=== PATIENT | female | born 1935 | race Two or more races ===

== ENCOUNTER 2017-11-24 20:27 | Emergency (ER) | payer OTHER ==
[~2017-11-24] VITALS: Ht 152.4 cm; Wt 62.6 kg
[~2017-11-24 20:27] MED LIST: CATAFLAM50 MG PO; DICLOFENAC SODI50 MG PO; GLUCOPHAGE XR500 MG; LIPITOR20 MG; LOSARTAN POTASS50 MG; ORPH100T PO; VERAPAMIL ER300 MG
[2017-11-24] MEDS ORDERED: FORTAMET500 MG (20:47)
== END 2017-11-24 22:32 | disposition home or self-care (01) ==
LOC: ER 20:27
DX: I10 Essential (primary) hypertension (principal)

== ENCOUNTER 2018-01-03 10:49 | Outpatient (CLI) | payer OTHER ==
[~2018-01-03 10:49] MED LIST changes: +FORTAMET500 MG
== END 2018-01-03 10:58 | disposition home or self-care (01) ==
LOC: MAMO-SONO 10:49
DX: Z12.31 Encounter for screening mammogram for malignant neoplasm of breast (principal); Z87.898 Personal history of other specified conditions; N60.02 Solitary cyst of left breast

== ENCOUNTER 2018-11-28 12:57 | Outpatient (CLI) | payer OTHER | END 2018-11-28 14:33 | disposition home or self-care (01) | LOC: SONOGRAMA 12:57 | DX: M65.812 Other synovitis and tenosynovitis, left shoulder (principal) ==

== ENCOUNTER 2020-11-27 08:29 | Outpatient (CLI) | payer OTHER | END 2020-11-27 08:38 | disposition home or self-care (01) | LOC: SONOGRAMA 08:29 | PROVIDERS: ATTEND Internal Medicine Endocrinology, Diabetes & Metabolism | DX: N28.89 Other specified disorders of kidney and ureter (principal); R14.0 Abdominal distension (gaseous); R63.4 Abnormal weight loss ==

== ENCOUNTER 2020-12-18 13:21 | Outpatient (CLI) | payer OTHER | END 2020-12-18 13:26 | disposition home or self-care (01) | LOC: NUCLEAR 13:21 | PROVIDERS: ATTEND Internal Medicine Endocrinology, Diabetes & Metabolism | DX: M85.89 Other specified disorders of bone density and structure, multiple sites (principal) ==